=== PATIENT | male | born 1955 | race Caucasian/White ===

== ENCOUNTER 2018-05-09 18:42 | Emergency (ER) | payer MEDICARE, BC ==
--- NOTE | 2018-05-09 19:32 | EDM.PDOC ---
ED HPI GENERAL MEDICAL PROBLEM - General Chief Complaint: Bite:Animal, Insect Stated Complaint: BUG BITE UPPER RT LEG/FATIGUED Time Seen by Provider: 05/09/18 19:25 Source of Information: Reports: Patient History Limitations: Reports: No Limitations - History of Present Illness INITIAL COMMENTS - FREE TEXT/NARRATIVE: Pt with insect bite x 2 to right upper posterior thigh. Believes they occurred 2 nights in a row in bed. Has applied hydrocortisone cream without relief. Onset: Sudden Location: Reports: Upper Extremity, Right Severity: Mild Improves with: Reports: Medication Worsens with: Reports: None Associated Symptoms: Reports: No Other Symptoms right thigh bug bites Pain Score (Numeric/FACES): 2 - Related Data Allergies Allergy/AdvReac Type Severity Reaction Status Date / Time No Known Allergies Allergy Verified 05/09/18 19:09 Home Meds: Home Meds Pravastatin Sodium 10 mg PO BEDTIME 05/09/18 [History] buPROPion [buPROPion XL] 300 mg PO DAILY 05/09/18 [History] Past Medical History HEENT History: Reports: Cataract, Hard of Hearing Cardiovascular History: Reports: High Cholesterol Genitourinary History: Reports: Renal Calculus Musculoskeletal History: Reports: Fracture Psychiatric History: Reports: Depression - Past Surgical History HEENT Surgical History: Reports: Cataract Surgery, Tonsillectomy GI Surgical History: Reports: Colonoscopy Social & Family History - Tobacco Use Smoking Status *Q: Never Smoker - Caffeine Use Caffeine Use: Reports: Coffee - Recreational Drug Use Recreational Drug Use: No ED ROS GENERAL - Review of Systems Review Of Systems: See Below Constitutional: Reports: No Symptoms HEENT: Reports: No Symptoms Respiratory: Reports: No Symptoms Cardiovascular: Reports: No Symptoms Endocrine: Reports: No Symptoms GI/Abdominal: Reports: No Symptoms Skin: Reports: Rash Neurological: Reports: No Symptoms Psychiatric: Reports: No Symptoms ED EXAM, ANIMAL BITE - Physical Exam Exam: See Below Exam Limited By: No Limitations General Appearance: Alert, WD/WN, No Apparent Distress Respiratory/Chest: No Respiratory Distress, Lungs Clear, Normal Breath Sounds, No Accessory Muscle Use, Chest Non-Tender Cardiovascular: Normal Peripheral Pulses, Regular Rate, Rhythm, No Edema, No Gallop, No JVD, No Murmur, No Rub Skin Exam: Other (with raised red papular area to right posterior thigh x 2. Warm to touch.) Course - Vital Signs Last Recorded V/S: Last Vital Signs Temp 99.4 F 05/09/18 19:10 Pulse 84 05/09/18 19:10 Resp 17 05/09/18 19:10 BP 122/80 05/09/18 19:10 Pulse Ox 95 05/09/18 19:10 Departure - Departure Time of Disposition: 19:36 Disposition: Home, Self-Care 01 Condition: Good Clinical Impression: Insect bite Qualifiers: Encounter type: initial encounter Qualified Code(s): W57.XXXA - Bitten or stung by nonvenomous insect and other nonvenomous arthropods, initial encounter Cellulitis Qualifiers: Site of cellulitis: extremity Site of cellulitis of extremity: lower extremity Laterality: right Qualified Code(s): L03.115 - Cellulitis of right lower limb - Discharge Information Instructions: Cellulitis, Adult, [id number] Referrals: Shruthi Hart, [employer]INE[employer] [Primary Care Provider] - - Problem List & Annotations (1) Cellulitis SNOMED Code(s): 714948337 Code(s): L03.90 - CELLULITIS, UNSPECIFIED Status: Acute Current Visit: Yes Qualifiers: Site of cellulitis: extremity Site of cellulitis of extremity: lower extremity Laterality: right Qualified Code(s): L03.115 - Cellulitis of right lower limb (2) Insect bite SNOMED Code(s): 146151441 Code(s): W57.XXXA - BIT/STUNG BY NONVENOM INSECT & OTH NONVENOM ARTHROPODS, INIT Status: Acute Current Visit: Yes Qualifiers: Encounter type: initial encounter Qualified Code(s): W57.XXXA - Bitten or stung by nonvenomous insect and other nonvenomous arthropods, initial encounter
== END 2018-05-09 19:51 | disposition home or self-care (01) ==
LOC: JP.ED 18:42
DX: S70.361A Insect bite (nonvenomous), right thigh, initial encounter (principal); L03.115 Cellulitis of right lower limb; E78.00 Pure hypercholesterolemia, unspecified; W57.XXXA Bitten or stung by nonvenomous insect and other nonvenomous arthropods, initial encounter
CPT/HCPCS: 99282

== ENCOUNTER 2021-05-13 19:19 | Emergency (ER) | payer MEDICARE, BC ==
--- NOTE | 2021-05-13 23:50 | EDM.PDOC ---
ED HPI GENERAL MEDICAL PROBLEM - General Chief Complaint: Cardiovascular Problem Stated Complaint: SKIPPING HEART BEATS Time Seen by Provider: 05/13/21 19:26 Source of Information: Reports: Patient, Family () History Limitations: Reports: No Limitations - History of Present Illness INITIAL COMMENTS - FREE TEXT/NARRATIVE: Justen is a 66-year-old male presenting to the ED for evaluation of "skipped beats" and generalized malaise with increased lethargy and fatigue. His who is a retired PA was resting her head on his chest and noticed last night when they were watching a movie they was having significant skipped beats. He has been more tired and sleeping more since October or November but it is significantly worsened over the last several weeks. He has not had any fever, chills, cough, sore throat, rhinorrhea, shortness of breath, chest pain, complaint of palpitations although he has skipped beats both by checking a pulse and by auscultation, nausea or vomiting, diarrhea or constipation, abdominal pain or back pain. He has had no change in sensation. He has had increased fatigue and less activity. He has been very careful during the entire Covid to avoid contact with anyone including his grandkids. He has been fully vaccinated with the second vaccine being given in early February. - Related Data Allergies Allergy/AdvReac Type Severity Reaction Status Date / Time No Known Allergies Allergy Verified 12/17/18 06:56 Home Meds: Home Meds Pravastatin Sodium 10 mg PO BEDTIME 05/09/18 [History] buPROPion [buPROPion XL] 300 mg PO DAILY 05/09/18 [History] Aspirin [Halfprin] 81 mg PO DAILY 12/16/18 [History] Biotin 10 mg PO DAILY 12/16/18 [History] Calcium Carb/Vit D3/Minerals [Sm Calcium 600+Minerals Tab] 1 each PO DAILY 12/16/18 [History] Multivitamin [Multi-Vitamin Daily] 1 each PO DAILY 12/16/18 [History] Sildenafil Citrate [Sildenafil] 20 mg PO ASDIRECTED 12/16/18 [History] Ubidecarenone [Coenzyme Q10] 400 mg PO DAILY 12/16/18 [History] Azelastine [Optivar 0.05% Ophth Soln] 1 drop EYEBOTH BID 05/13/21 [History] Cromolyn [Opticrom 4% Ophth Soln] 1 drop EYEBOTH QID 05/13/21 [History] Tamsulosin [Tamsulosin 24 Hr] 0.4 mg PO DAILY 05/13/21 [History] Past Medical History HEENT History: Reports: Cataract, Hard of Hearing Cardiovascular History: Reports: High Cholesterol Genitourinary History: Reports: Renal Calculus, Other (See Below) Other Genitourinary History: scheduled on friday to have lithotripsy at [facility] left ureter Musculoskeletal History: Reports: Fracture Psychiatric History: Reports: Depression - Infectious Disease History Infectious Disease History: Reports: Chicken Pox - Past Surgical History HEENT Surgical History: Reports: Cataract Surgery, Tonsillectomy Cardiovascular Surgical History: Reports: None GI Surgical History: Reports: Colonoscopy Male Surgical History: Reports: None Musculoskeletal Surgical History: Reports: Other (See Below) Other Musculoskeletal Surgeries/Procedures:: RIGHT FOREARM PLATES AND SCREWS Social & Family History - Family History Family Medical History: No Pertinent Family History - Tobacco Use Tobacco Use Status *Q: Never Tobacco User - Caffeine Use Caffeine Use: Reports: Coffee - Alcohol Use Days Per Week of Alcohol Use: 1 Number of Drinks Per Day: 1 Total Drinks Per Week: 1 - Recreational Drug Use Recreational Drug Use: No ED ROS GENERAL - Review of Systems Review Of Systems: See Below Constitutional: Reports: No Symptoms HEENT: Reports: No Symptoms Respiratory: Reports: No Symptoms Cardiovascular: Reports: Other ( noticed skipped beats while palpating and auscultating the patient. He was asymptomatic to this finding.) Endocrine: Reports: No Symptoms GI/Abdominal: Reports: No Symptoms : Reports: Other (Patient is scheduled for urologic surgery for stone.) Musculoskeletal: Reports: No Symptoms Skin: Reports: No Symptoms Neurological: Reports: No Symptoms Psychiatric: Reports: No Symptoms Hematologic/Lymphatic: Reports: No Symptoms Immunologic: Reports: No Symptoms ED EXAM, GENERAL - Physical Exam Exam: See Below Exam Limited By: No Limitations General Appearance: Alert, No Apparent Distress Eye Exam: Bilateral Eye: EOMI, PERRL Ears: Normal TMs Throat/Mouth: Normal Inspection, Normal Oropharynx, Normal Voice, No Airway Compromise Head: Atraumatic, Normocephalic Neck: Normal Inspection, Supple, Non-Tender, Full Range of Motion Respiratory/Chest: No Respiratory Distress, Lungs Clear, Normal Breath Sounds Cardiovascular: Normal Peripheral Pulses, Regular Rate, Rhythm, No Edema, No Gallop, No JVD, No Murmur, No Rub Peripheral Pulses: 2+: Radial (L), Radial (R), Posterior Tibial (L), Posterior Tibial (R) GI/Abdominal: Normal Bowel Sounds, Soft, Non-Tender, No Abnormal Bruit Back Exam: Normal Inspection, Full Range of Motion Extremities: Normal Inspection, Normal Range of Motion, No Pedal Edema, Normal Capillary Refill Neurological: Alert, Oriented, CN II-XII Intact, Normal Cognition, No Motor/Sensory Deficits Psychiatric: Normal Affect, Normal Mood Skin Exam: Warm, Dry, Intact, Normal Color Lymphatic: No Adenopathy Course - Vital Signs Last Recorded V/S: Last Vital Signs Temp 36.3 C 05/13/21 19:42 Pulse 73 05/13/21 21:00 Resp 9 L 05/13/21 21:00 BP 105/66 05/13/21 21:00 Pulse Ox 94 L 05/13/21 19:42 - Orders/Labs/Meds Orders: Active Orders 24 hr Category Date Time Status EKG Documentation Completion [RC] ASDIRECTED Care 05/13/21 19:27 Active EKG 12 Lead [EK] Routine Ther 05/13/21 19:26 Ordered Labs: Laboratory Tests 05/13/21 05/13/21 05/13/21 Range/Units 19:38 19:38 19:41 WBC 6.6 (4.5-11.0) K/uL RBC 5.10 (4.30-5.90) M/uL Hgb 15.4 H (12.0-15.0) g/dL Hct 45.5 (40.0-54.0) % MCV 89 (80-98) fL MCH 30 (27-31) pg MCHC 34 (32-36) % Plt Count 187 (150-400) K/uL Neut % (Auto) 39.7 (36-66) % Lymph % (Auto) 42.2 (24-44) % [place] % (Auto) 10.1 H (2-6) % Eos % (Auto) 7.1 H (2-4) % Baso % (Auto) 0.9 (0-1) % ESR 8 (0-20) mm/hr Sodium (140-148) mmol/L Potassium (3.6-5.2) mmol/L Chloride (100-108) mmol/L Carbon Dioxide (21-32) mmol/L Anion Gap (5.0-14.0) mmol/L BUN (7-18) mg/dL Creatinine (0.8-1.3) mg/dL Est Cr Clr Drug Dosing mL/min Estimated GFR (MDRD) (>60) Glucose (74-106) mg/dL Calcium (8.5-10.1) mg/dL Magnesium (1.8-2.4) mg/dL Total Bilirubin (0.2-1.0) mg/dL AST (15-37) U/L ALT (12-78) U/L Alkaline Phosphatase (46-116) U/L Troponin I (0.000-0.056) ng/mL C-Reactive Protein < 0.05 (0.0-0.3) mg/dL Total Protein (6.4-8.2) g/dL Albumin (3.4-5.0) g/dL Globulin (2.3-3.5) g/dL Albumin/Globulin Ratio (1.2-2.2) TSH, Ultra Sensitive (0.358-3.740) uIU/mL 05/13/21 05/13/21 05/13/21 Range/Units 19:41 19:41 19:41 WBC (4.5-11.0) K/uL RBC (4.30-5.90) M/uL Hgb (12.0-15.0) g/dL Hct (40.0-54.0) % MCV (80-98) fL MCH (27-31) pg MCHC (32-36) % Plt Count (150-400) K/uL Neut % (Auto) (36-66) % Lymph % (Auto) (24-44) % [place] % (Auto) (2-6) % Eos % (Auto) (2-4) % Baso % (Auto) (0-1) % ESR (0-20) mm/hr Sodium 142 (140-148) mmol/L Potassium 4.0 (3.6-5.2) mmol/L Chloride 106 (100-108) mmol/L Carbon Dioxide 30 (21-32) mmol/L Anion Gap 6.5 (5.0-14.0) mmol/L BUN 24 H (7-18) mg/dL Creatinine 1.3 (0.8-1.3) mg/dL Est Cr Clr Drug Dosing 56.15 mL/min Estimated GFR (MDRD) 55 L (>60) Glucose 94 (74-106) mg/dL Calcium 8.5 (8.5-10.1) mg/dL Magnesium 2.2 (1.8-2.4) mg/dL Total Bilirubin 0.3 (0.2-1.0) mg/dL AST 20 (15-37) U/L ALT 41 (12-78) U/L Alkaline Phosphatase 96 (46-116) U/L Troponin I < 0.017 (0.000-0.056) ng/mL C-Reactive Protein (0.0-0.3) mg/dL Total Protein 6.6 (6.4-8.2) g/dL Albumin 3.5 (3.4-5.0) g/dL Globulin 3.1 (2.3-3.5) g/dL Albumin/Globulin Ratio 1.1 L (1.2-2.2) TSH, Ultra Sensitive 1.766 (0.358-3.740) uIU/mL - Re-Assessments/Exams Free Text/Narrative Re-Assessment/Exam: 05/14/21 22:25 I reviewed the patient's labs including a CBC that shows a leukocyte count of 6.6, hemoglobin of 15.4 with a hematocrit of 45.5 and a platelet count of 187,000. The comprehensive metabolic panel was unremarkable except for a BUN of 24, creatinine 1.3 with a GFR calculated at 55. The troponin is negative at less than 0.017. Magnesium is 2.2, the TSH is 1.7 and the C-reactive protein and ESR are both negative. An EKG was obtained showing normal sinus rhythm with a rate of 80 bpm. He has an ventricular conduction delay and pronounced ST elevation in most leads suggestive for acute pericarditis. Patient symptoms of been ongoing since winter around October but have been worsening causing increased lethargy and more frequent sleeping. The patient did have his TSH checked and it is normal at 1.7. I did do a bedside limited 2D and M-mode echocardiogram to evaluate for possible pericarditis. The patient has normal LV and RV function with a small amount of pericardial fluid. There is no regional wall motion abnormalities. The aortic valve is trileaflet and appears to be normally functioning with a normal excursion. The mitral valve is bileaflet and is of normal function. The tricuspid valve is trileaflet and normal function. The left and right atria appear to be normal size. LVEF is 65 to 70%. Left ventricular wall thickness at the posterior wall is at 1 cm and septum is at 1.1 cm. I believe the patient's symptoms are a post viral syndrome causing the mild pericarditis. Patient is scheduled this week to have urologic surgery so the use of NSAIDs is contraindicated. Patient has an absolute contraindication to the use of steroids due to ocular side effects. I think that given the small amount of fluid in the pericardium and the lack of symptoms that simply observing the pericarditis at this time is the correct approach. I certainly believe he should let his urologist and anesthesia know that he has mild pericarditis. I do not believe that this will interfere with his upcoming surgery. At this time the patient is suitable for discharge home in satisfactory condition. Indications return to the ED were discussed. Departure - Departure Time of Disposition: 23:47 Disposition: Home, Self-Care 01 Clinical Impression: Frequent unifocal PVCs, Post viral syndrome Pericarditis Qualifiers: Pericarditis type: infectious Infectious pericarditis etiology: viral Chronicity: unspecified Qualified Code(s): B33.23 - Viral pericarditis Instructions: Pericarditis, Premature Ventricular Contraction, Viral Illness, Adult Referrals: Bárbara Harris MD [Primary Care Provider] - Forms: ED Department Discharge Care Plan Goals: Your echocardiogram today shows normal right and left ventricular function, normal heart valves, and a small amount of fluid in the pericardial sac but no evidence for cardiac tamponade. This is likely a post viral pericarditis given your symptoms. You still have several tests that are pending including a Babesia and a Lyme's test that may take 3 to 4 days to come back as they are send outs. If either of these tests are positive we will contact you to notify you and initiate therapy at that time. Please return to the ED should you develop significant worsening of your symptoms. Follow-up with your primary care provider as needed. Good luck with your upcoming urologic surgery. You should let your urologist and anesthesiologist know about the mild pericarditis although I do not think this will affect your upcoming surgery. Sepsis Event Note (ED) - Evaluation Sepsis Screening Result: No Definite Risk - Focused Exam Vital Signs: Vital Signs Temp Pulse Resp BP Pulse Ox 05/13/21 21:00 73 9 L 105/66 05/13/21 20:30 74 13 120/64 05/13/21 20:00 77 8 L 114/69 05/13/21 19:42 36.3 C 84 11 L 126/77 94 L 05/13/21 19:34 36.3 C 84 11 L 126/77 94 L - Problem List & Annotations (1) Frequent unifocal PVCs SNOMED Code(s): 63353295 Code(s): I49.3 - VENTRICULAR PREMATURE DEPOLARIZATION Status: Acute Priority: Medium Current Visit: Yes (2) Pericarditis SNOMED Code(s): 4339077 Code(s): I31.9 - DISEASE OF PERICARDIUM, UNSPECIFIED Status: Acute Priority: Medium Current Visit: Yes Qualifiers: Pericarditis type: infectious Infectious pericarditis etiology: viral Chronicity: unspecified Qualified Code(s): B33.23 - Viral pericarditis (3) Post viral syndrome SNOMED Code(s): 183137901 Code(s): G93.3 - POSTVIRAL FATIGUE SYNDROME Status: Acute Priority: Medium Current Visit: Yes - Problem List Review Problem List Initiated/Reviewed/Updated: Yes - My Orders Last 24 Hours: My Active Orders 05/13/21 19:26 EKG 12 Lead [EK] Routine 05/13/21 19:27 EKG Documentation Completion [RC] ASDIRECTED - Assessment/Plan Last 24 Hours: My Active Orders 05/13/21 19:26 EKG 12 Lead [EK] Routine 05/13/21 19:27 EKG Documentation Completion [RC] ASDIRECTED
== END 2021-05-13 23:59 | disposition home or self-care (01) ==
LOC: JP.ED 19:19
DX: I30.1 Infective pericarditis (principal); I49.3 Ventricular premature depolarization; B34.9 Viral infection, unspecified; E78.00 Pure hypercholesterolemia, unspecified; Z79.82 Long term (current) use of aspirin; Z79.899 Other long term (current) drug therapy
CPT/HCPCS: 36415; 80053; 83735; 84443; 84484; 85025; 85651; 86140; 93005; 99284; 99285-25

== ENCOUNTER 2023-02-15 14:08 | Emergency (ER) | payer MEDICARE, BC | END 2023-02-15 16:08 | disposition home or self-care (01) | LOC: JP.ED 14:08 | DX: R39.15 Urgency of urination (principal); E78.00 Pure hypercholesterolemia, unspecified; Z79.82 Long term (current) use of aspirin | CPT/HCPCS: 81001; 99283 ==

== ENCOUNTER 2023-12-09 14:58 | Emergency (ER) | payer MEDICARE, BC ==
[2023-12-09] MEDS ORDERED: Nitroglycerin 0.4 MG Tab.SL SL ONE (16:20)
[2023-12-09] MEDS ORDERED: Aspirin 81 MG Tab.Chew PO ONE (16:21)
[2023-12-09] MEDS ORDERED: Sodium Chloride 0.9% 1,000 ML IV SCH (16:30)
[2023-12-09] MEDS ORDERED: Heparin Sodium/D5W 25,000 UNITS/500 ML BAG IV SCH (16:45)
[2023-12-09] MEDS ORDERED: Heparin Sodium 5,000 Units/ML Vial IVPUSH ONE (17:00)
[2023-12-09 17:13] LABS: APPEARANCE,URINE CLEAR (CLEAR); BILIRUBIN,URINE NEGATIVE (NEGATIVE); COLOR,URINE YELLOW (YELLOW); GLUCOSE,URINE NEGATIVE (NEGATIVE); KETONES,URINE NEGATIVE (NEGATIVE); LEUKOCYTE ESTERASE,URINE NEGATIVE (NEGATIVE); NITRITE,URINE NEGATIVE (NEGATIVE); OCCULT BLOOD,URINE NEGATIVE (NEGATIVE); PH,URINE 5.5 (5.0-8.0); PROTEIN,URINE NEGATIVE (NEGATIVE); UROBILINOGEN,URINE 0.2 EU/dL (0.2-1.0)
[2023-12-09 17:21] LABS: AMORPHOUS SEDIMENT,URINE NOT SEEN; BACTERIA,URINE RARE; EPITHELIAL CELLS,URINE NOT SEEN; MUCUS,URINE NOT SEEN; RBC,URINE 0-5 (0-5); WBC,URINE 0-5 (0-5)
== END 2023-12-09 19:10 | disposition home or self-care (01) ==
LOC: JP.ED 14:58
DX: R42 Dizziness and giddiness (principal); E78.00 Pure hypercholesterolemia, unspecified; Z79.899 Other long term (current) drug therapy; Z88.8 Allergy status to other drugs, medicaments and biological substances
CPT/HCPCS: 36415; 70450; 81001; 84484; 85379; 93005; 93010; 96360; 99284; A9270; J7030

== ENCOUNTER 2024-07-19 12:05 | Emergency (ER) | payer MEDICARE, BC | END 2024-07-19 15:00 | disposition home or self-care (01) | LOC: JP.ED 12:05 | DX: K64.9 Unspecified hemorrhoids (principal); E78.00 Pure hypercholesterolemia, unspecified; Z79.899 Other long term (current) drug therapy; Z88.8 Allergy status to other drugs, medicaments and biological substances | CPT/HCPCS: 99282; 99283 ==